=== PATIENT | female | born 1965 | race Caucasian/White ===

== ENCOUNTER 2020-01-12 10:09 | Inpatient (IN) | payer BC, OTHER ==
[~2020-01-12 10:09] MED LIST: GLYCOPYRROLATE 1 MG/5 ML VIAL ONE; NEOSTIGMINE METHYLSULFATE 10 MG/10 ML VIAL ONE; ROCURONIUM BROMIDE INJ 50 MG/5 ML VIAL IV ONE; SUCCINYLCHOLINE CHLORIDE INJ 200 MG/10 ML VIAL ONE
[2020-01-12] MEDS ORDERED: NORMAL SALINE 1000 ML 1,000 ML IV ONE (10:50)
--- NOTE | 2020-01-12 10:51 | ER Document Report ---
ED Medical Screen (RME) - General Chief Complaint: Abdominal Pain Stated Complaint: UPPER ABDOMINAL PAIN Time Seen by Provider: 01/12/20 10:49 Notes: This is a 54-year-old female presented to the emergency room today with intermittent abdominal pain worsening over the last 3 days it started on the left upper quad is now centralized to the mid abdomen associated with nausea vomiting no diarrhea she last had a bowel movement yesterday states she is not passing any flatus. - Related Data Allergies/Adverse Reactions: No Known Allergies Allergy (Unverified 01/30/14 19:36) Past Medical History Past Surgical History: Reports: Hx Hysterectomy Physical Exam - Vital signs Vitals: Temp Pulse Resp BP Pulse Ox 98.4 F 94 18 179/97 H 98 01/12/20 10:01/12/20 10:01/12/20 10:01/12/20 10:01/12/20 10:22 Course - Vital Signs Vital signs: Temp Pulse Resp BP Pulse Ox 98.4 F 94 18 179/97 H 98 01/12/20 10:01/12/20 10:01/12/20 10:01/12/20 10:01/12/20 10:22
[2020-01-12 11:50] LABS: ABSOLUTE BASOPHILS # (AUTO) 0.1 10^3/uL (0.0-0.2); ABSOLUTE LYMPHOCYTES (AUTO) 1.5 10^3/uL (0.5-4.7); ABSOLUTE MONOCYTES (AUTO) 0.4 10^3/uL (0.1-1.4); ABSOLUTE NEUT (AUTO) 12.6 10^3/uL (1.7-8.2); BASOPHILS % (AUTO) 0.7 % (0-2); HEMATOCRIT 42.5 % (36.0-47.0); HEMOGLOBIN 14.5 g/dL (12.0-15.5); LYMPHOCYTES % (AUTO) 10.1 % (13-45); MEAN CORPUSCULAR HEMOGLOBIN 28.7 pg (27.0-33.4); MEAN CORPUSCULAR HGB CONC 34.1 g/dL (32.0-36.0); MEAN CORPUSCULAR VOLUME 84 fl (80-97); MONOCYTES % (AUTO) 3.1 % (3-13); PLATELET COUNT 442 10^3/uL (150-450); RED BLOOD COUNT 5.05 10^6/uL (3.72-5.28); RED CELL DISTRIBUTION WIDTH 14.7 % (11.5-14.0); SEGMENTED NEUTROPHILS % (AUTO) 86.1 % (42-78); TOTAL CELLS COUNTED % (AUTO) 100 %; WHITE BLOOD COUNT 14.7 10^3/uL (4.0-10.5)
[2020-01-12 12:03] LABS: APPEARANCE,URINE SLIGHTLY-CLOUDY; BILIRUBIN,URINE NEGATIVE (NEGATIVE); COLOR,URINE YELLOW; GLUCOSE, URINE NEGATIVE (NEGATIVE); KETONES,URINE NEGATIVE (NEGATIVE); LEUKOCYTE ESTERASE,URINE TRACE (NEGATIVE); NITRITE,URINE NEGATIVE (NEGATIVE); PROTEIN,URINE 100 mg/dL (NEGATIVE); URINE SPECIFIC GRAVITY 1.018; UROBILINOGEN,URINE NEGATIVE mg/dL (<2.0)
[2020-01-12 12:08] LABS: ALBUMIN 4.2 g/dL (3.5-5.0); ALKALINE PHOSPHATASE 86 U/L (38-126); ANION GAP 10 (5-19); ASPARTATE AMINO TRANSFERASE 33 U/L (14-36); BILIRUBIN,DIRECT 0.1 mg/dL (0.0-0.4); BILIRUBIN,TOTAL 0.4 mg/dL (0.2-1.3); BLOOD UREA NITROGEN 10 mg/dL (7-20); CALCIUM 9.7 mg/dL (8.4-10.2); CARBON DIOXIDE 25 mmol/L (22-30); CHLORIDE 98 mmol/L (98-107); GLUCOSE 135 mg/dL (75-110); TOTAL PROTEIN 8.1 g/dL (6.3-8.2)
[2020-01-12] MEDS ORDERED: KETOROLAC TROMETHAMINE INJ/PF 30 MG/1 ML SDV IV ONE (12:33)
[2020-01-12] MEDS ORDERED: MORPHINE SULFATE 10 MG/ML INJ IV ONE ×2 (12:33)
--- NOTE | 2020-01-12 13:38 | ER Document Report ---
Entered by MAXIME CARDOZA SCRIBE 01/12/20 1230 Acting as scribe for:VERONIKA GRANT MD ED GI/ - General Chief Complaint: Abdominal Pain Stated Complaint: UPPER ABDOMINAL PAIN Time Seen by Provider: 01/12/20 10:49 Mode of Arrival: Ambulatory Information source: Patient Notes: This 54 year old female patient s/p hysterectomy presents to the emergency department today with complaints of left sided abdominal pain that radiates to her back. Patient reports that she had localized left flank pain yesterday evening and she could not get comfortable, stating she was pacing around in discomfort. She reports that the pain became severe last night at 11:00 PM and has remained severe until now. Patient does take 120 mg of methadone daily for chronic back pain and she says she has been attempting to ween herself down to 60mg but adds that she ends up taking all 120mg most days. - Related Data Allergies/Adverse Reactions: No Known Allergies Allergy (Unverified 01/30/14 19:36) Past Medical History - General Information source: Patient - Social History Smoking Status: Current Every Day Smoker Cigarette use (# per day): Yes - 2-3 ppd Lives with: Family Family History: Reviewed & Not Pertinent Musculoskeletal Medical History: Reports Other - Degenerative disc disease Past Surgical History: Reports: Hx Hysterectomy Review of Systems - Review of Systems Constitutional: No symptoms reported EENT: No symptoms reported Cardiovascular: No symptoms reported Respiratory: No symptoms reported Gastrointestinal: See HPI, Abdominal pain, Nausea. denies: Vomiting Genitourinary: See HPI, Flank pain Female Genitourinary: No symptoms reported Musculoskeletal: No symptoms reported Skin: No symptoms reported Hematologic/Lymphatic: No symptoms reported Neurological/Psychological: No symptoms reported -: Yes All other systems reviewed and negative Physical Exam - Vital signs Vitals: Temp Pulse Resp BP Pulse Ox 98.4 F 94 18 179/97 H 98 01/12/20 10:22 01/12/20 10:22 01/12/20 10:01/12/20 10:01/12/20 10:22 - Notes Notes: Physical Exam: General: Alert, smells heavily of tobacco, appears anxious and uncomfortable, writhing around in apparent pain. HEENT: Normocephalic. Atraumatic. PERRL. Extraocular movements intact. Oropharynx clear. Neck: Supple. Non-tender. Respiratory: No respiratory distress. Rhonchi consistent with smoking history. Cardiovascular: Regular rate and rhythm. Abdominal: Morbidly obese. Tenderness with deep palpation of the left upper quadrant. Mild left mid abdominal tenderness with palpation. No distension. Normal Bowel Sounds. Back: Left CVA tenderness to percussion. Extremities: Moves all four extremities. Upper extremities: Normal inspection. Normal ROM. Lower extremities: Normal inspection. No edema. Normal ROM. Neurological: Normal cognition. AAOx4. Normal speech. Psychological: Anxious. Skin: Warm. Dry. Normal color. Course - Re-evaluation Re-evalutation: 01/12/20 15:15 I did review the [address] findings with the patient which included the cholelithiasis without cholecystitis, and diverticulosis without diverticulitis. There are no other abnormalities. The patient's urine did have large blood with 141 RBCs and 3 WBCs. The patient states she has never had blood in her urine, and it is been checked many times at the methadone clinic. She was not aware that they were only doing a drug screen they were not doing a urinalysis. So she does not know if the microscopic hematuria is a new finding. She does report that she had nausea and vomiting all night and it did become bilious in nature. This may be the explanation for her WBC of 14,700 with 86 segs, however the urine has a specific gravity 1.018 with no ketones, the BUN is 10, creatinine 0.64, and serum CO2 of 25--none of these laboratory findings are consistent with the history of vomiting and dry heaving all night as she described. She is very resistant to the idea that any of the pain could be related to muscle strains possibly made worse from all the vomiting since the pains have been going on for at least 3 days. She also gives a very vague history about trying to come down off of her methadone 120 mg daily where she reports she will try to get by 160 mg a day off and on for the past 6 months but ends up having to take the full dose frequently. She goes to the methadone clinic every day, I suspect they are not watching her take the medicine. She also states that she watches what she eats because she notices when she eats greasy foods that it makes her epigastric and right upper abdomen hurt. Due to the difficulty in knowing what is really causing her constellation of symptoms, I am going to add cardiac enzymes and EKG, give her additional pain and nausea medicine, give her a loading dose of Robaxin, and get a gallbladder ultrasound. 01/12/20 16:59 The gallbladder ultrasound is read as cholelithiasis with subtle gallbladder wall thickening suggests developing cholecystitis. - Vital Signs Vital signs: Temp Pulse Resp BP Pulse Ox 98.1 F 98 18 138/83 H 96 01/12/20 17:17 01/12/20 17:17 01/12/20 10:22 01/12/20 17:17 01/12/20 17:17 - Laboratory Result Diagrams: 01/12/20 11:00 01/12/20 11:00 Laboratory results interpreted by me: 01/12/20 01/12/20 01/12/20 11:00 11:00 11:00 WBC 14.7 H RDW 14.7 H Lymph % (Auto) 10.1 L Absolute Neuts (auto) 12.6 H Seg Neutrophils % 86.1 H Sodium 133.4 L Glucose 135 H Creatine Kinase Urine Protein 100 H Urine Blood LARGE H Ur Leukocyte Esterase TRACE H 01/12/20 11:00 WBC RDW Lymph % (Auto) Absolute Neuts (auto) Seg Neutrophils % Sodium Glucose Creatine Kinase 240 H Urine Protein Urine Blood Ur Leukocyte Esterase - Diagnostic Test Radiology reviewed: Image reviewed, Reports reviewed - CT scan abdomen pelvis with IV and oral contrast does not show any acute abnormalities. There is cholelithiasis without evidence of cholecystitis and there is diverticulosis without evidence of diverticulitis. Bladder ultrasound is read as cholelithiasis with subtle gallbladder wall thickening suggests developing cholecystitis. The tech worksheet shows a gallbladder wall of 6 mm, negative Duffy sign, the largest stone at 1.9 cm. No sludge. - EKG Interpretation by Me EKG shows normal: Sinus rhythm, [place], QRS Complexes. abnormal: Intervals - Borderline prolonged QT interval, ST-T Waves - Anterior T abnormalities Rate: Normal - 82 Rhythm: NSR When compared to previous EKG there are: Previous EKG unavailable - Consults Dr. Castillo Time consulted: 16:55 Consulted provider: will come to ER Discharge - Discharge Clinical Impression: Abdominal pain Qualifiers: Abdominal location: unspecified location Qualified Code(s): R10.9 - Unspecified abdominal pain Back pain Qualifiers: Back pain location: low back pain Chronicity: chronic Back pain laterality: unspecified Sciatica presence: without sciatica Qualified Code(s): M54.5 - Low back pain; G89.29 - Other chronic pain Nausea and vomiting Qualifiers: Vomiting type: bilious vomiting Qualified Code(s): R11.14 - Bilious vomiting Cholelithiasis Qualifiers: Cholelithiasis location: gallbladder Cholecystitis presence: with cholecystitis Cholecystitis acuity: acute Biliary obstruction: without biliary obstruction Qualified Code(s): K80.00 - Calculus of gallbladder with acute cholecystitis without obstruction Condition: Stable Disposition: ADMITTED INPATIENT Admitting Provider: Surgicalist Unit Admitted: Surgical Floor I personally performed the services described in the documentation, reviewed and edited the documentation which was dictated to the scribe in my presence, and it accurately records my words and actions.
--- NOTE | 2020-01-12 14:08 | RADIOLOGY REPORT (SQ) ---
EXAM DESCRIPTION: CT ABD/PELVIS WITH IV ORAL IMAGES COMPLETED DATE/TIME: 01/12/2020 1:36 pm REASON FOR STUDY: pain COMPARISON: None. TECHNIQUE: CT scan of the abdomen and pelvis performed with intravenous and oral contrast using garcia quita scanning technique with dynamic intravenous contrast injection. Images reviewed with lung, soft t issue, and bone windows. Reconstructed coronal and sagittal MPR images reviewed. Delayed images for e valuation of the urinary system also acquired. All images stored on PACS. All CT scanners at this facility use dose modulation, iterative reconstruction, and/or weight based d osing when appropriate to reduce radiation dose to as low as reasonably achievable (ALARA). [facility]: Dose Right [facility]: CareDose [facility]: Dose Right [facility]: Teradose 4D [facility]: GenPrime CONTRAST TYPE AND DOSE: contrast/concentration: Isovue 350.00 mmol/ml; Total Contrast Delivered: 98. 0 ml; Total Saline Delivered: 68.0 ml RENAL FUNCTION: GFR > 60. RADIATION DOSE: CT Rad equipment meets quality standard of care and radiation dose reduction techniq ues were employed. CTDIvol: 17.0 - 20.1 mGy. DLP: 2077 mGy-cm. . LIMITATIONS: None. FINDINGS: LOWER CHEST: No significant findings. No nodules or infiltrates. LIVER: Normal size. No masses. No dilated ducts. SPLEEN: Normal size. No focal lesions. PANCREAS: No masses. No significant calcifications. No adjacent inflammation or peripancreatic fluid collections. Pancreatic duct not dilated. GALLBLADDER: Gallstones. No inflammatory changes to suggest cholecystitis. ADRENAL GLANDS: No significant masses or asymmetry. RIGHT KIDNEY AND URETER: No solid masses. No significant calcifications. No hydronephrosis or hyd roureter. LEFT KIDNEY AND URETER: No solid masses. No significant calcifications. No hydronephrosis or hydr oureter. AORTA AND VESSELS: No aneurysm. No dissection. Renal arteries, SMA, celiac without stenosis. RETROPERITONEUM: No retroperitoneal adenopathy, hemorrhage or masses. BOWEL AND PERITONEAL CAVITY: Diverticulosis descending and sigmoid colon. No evidence of diverticuli tis. APPENDIX: Not visualized. PELVIS: No significant masses. Normal bladder. No free fluid. ABDOMINAL WALL: No masses. No hernias. BONES: Nothing acute. OTHER: No other significant finding. IMPRESSION: 1. No acute findings. Cholelithiasis without evidence cholecystitis. 2. Diverticulosis without evidence of diverticulitis. TECHNICAL DOCUMENTATION: JOB ID: [id number] Quality ID # [id number]: Final reports with documentation of one or more dose reduction techniques (e.g., Au tomated exposure control, adjustment of the mA and/or kV according to patient size, use of iterative reconstruction technique) 2010 [employer]- All Rights Reserved Reading location - IP/workstation name: [email or web address]
[2020-01-12] MEDS ORDERED: HYDROMORPHONE HCL INJ/PF 2 MG/ML AMPULE IV ONE (15:18)
[2020-01-12] MEDS ORDERED: METHOCARBAMOL INJ/PF 1000 MG/10 ML SDV IV ONE (15:18)
[2020-01-12] MEDS ORDERED: ONDANSETRON HCL INJ/PF 4 MG/2 ML SDV IV ONE (15:18)
--- NOTE | 2020-01-12 16:37 | RADIOLOGY REPORT (SQ) ---
EXAM DESCRIPTION: U/S ABDOMEN LIMITED W/O DOP IMAGES COMPLETED DATE/TIME: 01/12/2020 4:16 pm REASON FOR STUDY: gallstones. abd pain COMPARISON: 01/12/2020 CT abdomen and pelvis TECHNIQUE: Dynamic and static grayscale images acquired of the abdomen and recorded on PACS. Additio nal selected color Doppler and spectral images recorded. LIMITATIONS: None. FINDINGS: PANCREAS: Not adequately visualized due to obscuration by intervening bowel gas. LIVER: Mild hepatic steatosis with focal sparing about the gallbladder fossa. No mass. Normal varia nt Nessa's lobe. LIVER VASCULATURE: Normal directional flow of the main portal vein and hepatic veins. GALLBLADDER: Cholelithiasis. Mild mural thickening. No demonstrated pericholecystic fluid ULTRASOUND-DETECTED WOODWARD'S SIGN: Negative. INTRAHEPATIC DUCTS AND COMMON DUCT: CBD and intrahepatic ducts normal caliber. No filling defects. INFERIOR VENA CAVA: Normal flow. AORTA: No aneurysm. RIGHT KIDNEY: Normal size. Normal echogenicity. No solid or suspicious masses. No hydronephrosis. No calcifications. PERITONEAL AND RIGHT PLEURAL SPACE: No ascites or effusions. OTHER: No other significant findings. IMPRESSION: Cholelithiasis with subtle gallbladder wall thickening suggests developing cholecystitis . TECHNICAL DOCUMENTATION: JOB ID: [id number] 2010 [employer]- All Rights Reserved Reading location - IP/workstation name: [email or web address]
--- NOTE | 2020-01-12 17:55 | EKG REPORT ---
SEVERITY:- BORDERLINE ECG - SINUS RHYTHM BORDERLINE T ABNORMALITIES, ANTERIOR LEADS BORDERLINE PROLONGED QT INTERVAL : Confirmed by: Vicky Fields MD 12-Jan-2020 17:54:27
[2020-01-12] MEDS ORDERED: DEXTROSE 40% GEL 15 GM TUBE PO PRN ×2 (18:08)
[2020-01-12] MEDS ORDERED: GLUCAGON,HUMAN RECOMB 1 MG INJ SUBCUT PRN (18:08)
[2020-01-12] MEDS ORDERED: DEXTROSE 50%-WATER 25 GM/50 ML DISP.SYRIN IV PRN ×2 (18:08)
--- NOTE | 2020-01-12 18:39 | PDOC H&P ---
History of Present Illness Patient complains of: Epigastric abdominal pain History of Present Illness: SUSU VELASQUEZ is a 54 year old female Presenting with epigastric abdominal pain of sudden onset last night which has been persistent although lessening in severity. She has had associated nausea and vomiting. No fevers. No jaundice. No diarrhea. Denies any prior history of this sort of pain. Patient is on methadone for chronic lower back pain. She denies any urinary symptoms. Past Medical History Medical History: Other - Chronic lower back pain requiring methadone. Musculoskeltal Medical History: Reports: Other - Degenerative disc disease Past Surgical History Past Surgical History: Reports: Hysterectomy - Total abdominal hysterectomy and bilateral salpingo-oophorectomy for endome Social History Information Source: Parent Lives with: Family Smoking Status: Current Every Day Smoker Frequency of Alcohol Use: None Hx Recreational Drug Use: No Hx Prescription Drug Abuse: Yes - Methadone Family History Family History: Reviewed & Not Pertinent Parental Family History Reviewed: Yes - Gallstones. Children Family History Reviewed: Yes Sibling(s) Family History Reviewed.: Yes Medication/Allergy Allergies/Adverse Reactions: No Known Allergies Allergy (Unverified 01/30/14 19:36) Review of Systems All systems: reviewed and no additional remarkable complaints except as stated Nose, Mouth, and Throat: PRESENT: other - Runny nose and congestion Gastrointestinal: PRESENT: as per HPI Musculoskeletal: PRESENT: back pain Physical Exam Vital Signs: Temp Pulse Resp BP Pulse Ox 98.1 F 98 18 138/83 H 96 01/12/20 17:17 01/12/20 17:17 01/12/20 10:22 01/12/20 17:17 01/12/20 17:17 Intake & Output 01/11/20 01/12/20 01/13/20 06:59 06:59 06:59 Intake Total 1000 Balance 1000 Weight 86.4 kg General appearance: PRESENT: no acute distress, cooperative Eye exam: PRESENT: conjunctiva pink Neck exam: PRESENT: other - Supple with no masses and no tenderness Respiratory exam: PRESENT: clear to auscultation osmar Cardiovascular exam: PRESENT: RRR GI/Abdominal exam: PRESENT: other - Soft, nondistended, mild tenderness at the epigastric region. No peritoneal signs. No flank tenderness. Extremities exam: PRESENT: other - No swelling and no tenderness Neurological exam: PRESENT: alert, awake Psychiatric exam: PRESENT: appropriate affect Results Laboratory Results: 01/12/20 11:00 01/12/20 11:00 01/12/20 01/12/20 01/12/20 11:00 11:00 11:00 WBC 14.7 H RBC 5.05 Hgb 14.5 Hct 42.5 MCV 84 MCH 28.7 MCHC 34.1 RDW 14.7 H Plt Count 442 Seg Neutrophils % 86.1 H Sodium 133.4 L Potassium 4.0 Chloride 98 Carbon Dioxide 25 Anion Gap 10 BUN 10 Creatinine 0.64 Est GFR ( Amer) > 60 Glucose 135 H Calcium 9.7 Total Bilirubin 0.4 AST 33 Alkaline Phosphatase 86 Total Protein 8.1 Albumin 4.2 Lipase 49.2 Urine Color YELLOW Urine Appearance SLIGHTLY-CLOUDY Urine pH 8.0 Ur Specific [place] 1.018 Urine Protein 100 H Urine Glucose (UA) NEGATIVE Urine Ketones NEGATIVE Urine Blood LARGE H Urine Nitrite NEGATIVE Ur Leukocyte Esterase TRACE H Urine WBC (Auto) 3 Urine RBC (Auto) 141 01/12/20 01/12/20 11:00 11:00 Creatine Kinase 240 H Troponin I 0.018 Impressions: Abdomen/Pelvis CT 01/12/20 10:49 IMPRESSION: 1. No acute findings. Cholelithiasis without evidence cholecystitis. 2. Diverticulosis without evidence of diverticulitis. Abdomen Ultrasound 01/12/20 15:23 IMPRESSION: Cholelithiasis with subtle gallbladder wall thickening suggests developing cholecystitis. Assessment & Plan - Diagnosis (1) Cholelithiasis and acute cholecystitis without obstruction Is this a current diagnosis for this admission?: Yes Plan: Ultrasound findings and symptoms consistent with acute cholecystitis. Patient has been drinking Mountain Dew all day therefore cannot proceed with surgery now. Will admit the patient. I have discussed with the patient the risk and benefits of a laparoscopic cholecystectomy including risk of mistaken diagnosis, infection, bleeding, bile duct and intestinal injury, conversion to an open procedure, postcholecystectomy diarrhea, cardiopulmonary complications, co ntinued abdominal pain despite gallbladder removal. Patient understands all of these concerns and agrees to proceed. She understands that the oncoming surgeon will make a determination about whether to proceed with surgery tomorrow or await a COVID test prior to surgery. (2) Hematuria Is this a current diagnosis for this admission?: Yes Plan: Of unknown etiology. Noted on urine analysis. Will need urology consult as an outpatient. (3) Methadone addiction Is this a current diagnosis for this admission?: Yes Plan: We will consult hospitalist to help manage her pain regimen. It is okay from surgical standpoint for her to take her normal methadone dosages. - Time Time Spent: 50 to 70 Minutes Critical Time spent with patient: 25-34 minutes Anticipated Discharge Disposition: Home, Self Care Anticipated Discharge Timeframe: within 48 hours
[2020-01-12] MEDS: AMPICILLIN SODIUM/SULBACTAM NA 3 GM in NORMAL SALINE 100 ML IV SCH (19:11)
--- NOTE | 2020-01-12 21:15 | PDOC CONSULTATION ---
Consultation Consult Date: 01/12/20 Attending physician:: ANDREI YOST Provider Consulted: ROSE TURK History of Present Illness Admission Date/PCP: 01/12/20 18:04 History of Present Illness: SUSU VELASQUEZ is a 54 year old female who is on chronic methadone who was admitted by the surgical service for acute cholecystitis. Hospitalist service was consulted for starting her methadone. She was very vague about her dosing. She said she is been trying to cut back to 60 mg a day but often winds up having to take up to 120 mg a day. Past Medical History Musculoskeltal Medical History: Reports: Other - Degenerative disc disease Psychiatric Medical History: Denies: Depression Past Surgical History Past Surgical History: Reports: Hysterectomy - Total abdominal hysterectomy and bilateral salpingo-oophorectomy for endome Social History Lives with: Family Smoking Status: Current Every Day Smoker Cigarettes Packs Per Day: 1 Frequency of Alcohol Use: None Hx Recreational Drug Use: No Hx Prescription Drug Abuse: Yes - Methadone Family History Family History: Reviewed & Not Pertinent Parental Family History Reviewed: Yes Children Family History Reviewed: Yes Sibling(s) Family History Reviewed.: Yes Medication/Allergy Allergies/Adverse Reactions: No Known Allergies Allergy (Unverified 01/30/14 19:36) Review of Systems All systems: reviewed and no additional remarkable complaints except as stated - All systems reviewed and were negative except as previously noted Physical Exam Vital Signs: Temp Pulse Resp BP Pulse Ox 98.1 F 98 18 138/83 H 96 01/12/20 17:17 01/12/20 17:17 01/12/20 10:22 01/12/20 17:17 01/12/20 17:17 Intake & Output 01/11/20 01/12/20 01/13/20 06:59 06:59 06:59 Intake Total 1000 Balance 1000 Weight 86.4 kg General appearance: PRESENT: no acute distress, cooperative, disheveled, obese Head exam: PRESENT: atraumatic, normocephalic Eye exam: PRESENT: EOMI Ear exam: PRESENT: normal external ear exam Respiratory exam: PRESENT: unlabored. ABSENT: accessory muscle use, prolonged expiratory phas, tachypnea Neurological exam: PRESENT: awake, oriented to person, oriented to place, oriented to situation Results Laboratory Results: 01/12/20 11:00 01/12/20 11:00 01/12/20 01/12/20 01/12/20 11:00 11:00 11:00 WBC 14.7 H RBC 5.05 Hgb 14.5 Hct 42.5 MCV 84 MCH 28.7 MCHC 34.1 RDW 14.7 H Plt Count 442 Seg Neutrophils % 86.1 H Sodium 133.4 L Potassium 4.0 Chloride 98 Carbon Dioxide 25 Anion Gap 10 BUN 10 Creatinine 0.64 Est GFR ( Amer) > 60 Glucose 135 H Calcium 9.7 Total Bilirubin 0.4 AST 33 Alkaline Phosphatase 86 Total Protein 8.1 Albumin 4.2 Lipase 49.2 Urine Color YELLOW Urine Appearance SLIGHTLY-CLOUDY Urine pH 8.0 Ur Specific [place] 1.018 Urine Protein 100 H Urine Glucose (UA) NEGATIVE Urine Ketones NEGATIVE Urine Blood LARGE H Urine Nitrite NEGATIVE Ur Leukocyte Esterase TRACE H Urine WBC (Auto) 3 Urine RBC (Auto) 141 01/12/20 01/12/20 11:00 11:00 Creatine Kinase 240 H Troponin I 0.018 Impressions: Abdomen/Pelvis CT 01/12/20 10:49 IMPRESSION: 1. No acute findings. Cholelithiasis without evidence cholecystitis. 2. Diverticulosis without evidence of diverticulitis. Abdomen Ultrasound 01/12/20 15:23 IMPRESSION: Cholelithiasis with subtle gallbladder wall thickening suggests developing cholecystitis. Assessment and Plan - Diagnosis (1) Methadone addiction Is this a current diagnosis for this admission?: Yes Plan: We will start her back at 60 mg a day. PRN pain medication for her cholecystitis as deemed appropriate by the surgical service. Her pain can be managed by the surgical service as they typically would for any patient in this situation. We will sign off. Please reconsult if needed. - Time Time Spent with patient: Less than 15 minutes Anticipated Discharge Disposition: Per surgery Anticipated Discharge Timeframe: Per surgery
[2020-01-12] MEDS: ONDANSETRON HCL INJ/PF 4 MG/2 ML SDV IV PRN (22:03)
[2020-01-12] MEDS: METHADONE HCL 10 MG TABLET PO SCH (22:03)
[2020-01-13] MEDS: AMPICILLIN SODIUM/SULBACTAM NA 3 GM in NORMAL SALINE 100 ML IV SCH ×4 (01:00→17:10)
[2020-01-13] MEDS: NORMAL SALINE 1000 ML 1,000 ML IV PRN ×4 (01:09→17:14)
[2020-01-13] MEDS: ONDANSETRON HCL INJ/PF 4 MG/2 ML SDV IV PRN ×2 (04:02→10:02)
[2020-01-13] MEDS: METHADONE HCL 10 MG TABLET PO SCH ×2 (06:09→14:29)
[2020-01-13] MEDS ORDERED: MORPHINE SULFATE 10 MG/ML INJ ONE ×3 (10:11→14:03)
[2020-01-13] MEDS ORDERED: FENTANYL CITRATE INJ/PF 250 MCG/5 ML AMPULE ONE (11:59)
[2020-01-13] MEDS ORDERED: ONDANSETRON HCL INJ/PF 4 MG/2 ML SDV ONE (12:00)
[2020-01-13] MEDS ORDERED: PROPOFOL INJ 200 MG/20 ML VIAL IV ONE (12:00)
[2020-01-13] MEDS ORDERED: MIDAZOLAM 2 MG/2 ML INJ ONE (12:00)
[2020-01-13] MEDS ORDERED: DEXAMETHASONE SOD PHOSPHATE INJ 4 MG/1 ML VIAL ONE (12:00)
[2020-01-13] MEDS ORDERED: BUPIVACAINE INJ/PF LIPOSOME/PF 266 MG/20 ML SDV ONE (12:13)
[2020-01-13] MEDS ORDERED: DIPHENHYDRAMINE HCL 50 MG/ML VIAL IV PRN (13:37)
[2020-01-13] MEDS ORDERED: FENTANYL CITRATE INJ/PF 100 MCG/2 ML AMPUL IV PRN ×3 (13:37)
[2020-01-13] MEDS ORDERED: OXYCODONE-ACETAMINOPHEN 5-325 MG TABLET PO PRN ×2 (13:37)
[2020-01-13] MEDS ORDERED: MORPHINE SULFATE 10 MG/ML INJ IV PRN (13:37)
[2020-01-13] MEDS ORDERED: MEPERIDINE HCL/PF INJ 25 MG/1 ML DISP.SYRIN IV PRN (13:37)
--- NOTE | 2020-01-13 14:11 | Operative Report ---
Nonrecallable Operative Report DATE OF SURGERY: 01/13/20 PREOPERATIVE DIAGNOSIS: cholecystitis POSTOPERATIVE DIAGNOSIS: cholecystitis OPERATION: laparoscopic cholecystectomy SURGEON: ANTONI DOMINGUEZ ANESTHESIA: GA TISSUE REMOVED OR ALTERED: gallbladder COMPLICATIONS: none ESTIMATED BLOOD LOSS: 25cc. PROCEDURE: After obtaining informed consent, the patient was taken to the operating room. General Anesthesia was induced; the arms were extended, and the abdomen was exposed, and prepped and draped in a sterile fashion. Instrumentation was set up for laparoscopic cholecystectomy. Surgical plan and surgical timeout were conducted. A vertical incision was made above the umbilicus, and a verres needle was insert ed uneventfully into the peritoneal cavity. Pneumoperitoneum was established. The verres needle was removed and a 10 mm trocar was inserted and a millimeter flexible laparoscope was inserted. Visualization of the peritoneal cavity confirmed safe uneventful entry. Under direct visualization 3 additional 5 mm ports were established, one in the subxiphoid position and second in the subcostal position. Visualization of the hepatobiliary anatomy revealed no anatomic variations. A grasper was placed on the fundus of the gallbladder and the gallbladder is elevated over the right surface of the liver; a second grasper was used to grasp the infundibulum of the gallbladder. The neck of the gallbladder and junction with the cystic duct was dissected out. The Cystic artery was in its usual location medial and cephalad to the cystic duct. The cystic artery was surrounded with a right angle clamp, clipped twice proximally and divided with laparoscopic scissors. We now opened the triangle of Calot by dividing the peritoneal reflection on both the medial and lateral sides of the cystic duct infundibular junction. The critical view was obtained. We now milked the cystic duct of any possible stones, clipped the cystic duct approximately 2 times once distally and divided with scissors. The gallbladder was now removed from the undersurface of the liver using hook cautery dissection. Graspers were repositioned and the gallbladder was removed uneventfully from the abdominal cavity through the super umbilical port site incision. The specimen was examined, then passed off to pathology for permanent analysis. We returned to the peritoneal cavity check for bleeding, and evidence of bile leak, and there was none. We Confirmed satisfactory placement of clips on cystic duct and cystic artery were secured . At this point we felt the operation was complete. The subcutaneous tissue was then anesthetized with quarter percent Marcaine Sponge and needle counts are correct. All ports removed under direct visualization pneumoperitoneum evacuated, and 5 mm port wounds closed with 3-0 Vicryl suture, benzoin and Steri-Strips. The patient was extubated, and taken to the recovery room in stable condition. Sponge needle counts correct x2 estimated blood loss 25 cc
[2020-01-13] MEDS: KETOROLAC TROMETHAMINE INJ/PF 30 MG/1 ML SDV IV SCH (17:10)
[2020-01-13 17:43] LABS: ABSOLUTE LYMPHOCYTES (AUTO) 1.1 10^3/uL (0.5-4.7); ABSOLUTE MONOCYTES (AUTO) 0.4 10^3/uL (0.1-1.4); ABSOLUTE NEUT (AUTO) 16.7 10^3/uL (1.7-8.2); BASOPHILS % (AUTO) 0.1 % (0-2); HEMATOCRIT 38.1 % (36.0-47.0); HEMOGLOBIN 12.6 g/dL (12.0-15.5); LYMPHOCYTES % (AUTO) 5.9 % (13-45); MEAN CORPUSCULAR HGB CONC 33.2 g/dL (32.0-36.0); MEAN CORPUSCULAR VOLUME 85 fl (80-97); MONOCYTES % (AUTO) 2.2 % (3-13); PLATELET COUNT 387 10^3/uL (150-450); RED BLOOD COUNT 4.51 10^6/uL (3.72-5.28); SEGMENTED NEUTROPHILS % (AUTO) 91.8 % (42-78); TOTAL CELLS COUNTED % (AUTO) 100 %; WHITE BLOOD COUNT 18.2 10^3/uL (4.0-10.5)
[2020-01-13 18:02] LABS: ANION GAP 8 (5-19); BLOOD UREA NITROGEN 10 mg/dL (7-20); CARBON DIOXIDE 25 mmol/L (22-30); CHLORIDE 104 mmol/L (98-107); GLUCOSE 110 mg/dL (75-110); POTASSIUM 3.7 mmol/L (3.6-5.0)
[2020-01-13] MEDS ORDERED: MORPHINE SULFATE 10 MG/ML INJ IV ONE (22:00)
[2020-01-14] MEDS: AMPICILLIN SODIUM/SULBACTAM NA 3 GM in NORMAL SALINE 100 ML IV SCH ×2 (00:03→06:04)
[2020-01-14] MEDS: KETOROLAC TROMETHAMINE INJ/PF 30 MG/1 ML SDV IV SCH ×2 (00:03→06:06)
[2020-01-14] MEDS ORDERED: METHADONE HCL 10 MG TABLET PO SCH (10:00)
[2020-01-14] MEDS ORDERED: METHADONE HCL PO SCH (10:00)
--- NOTE | 2020-01-14 10:39 | PDOC PROGRESS REPORT ---
Subjective Progress Note for:: 01/14/20 Subjective:: Feels much better after the operation. Tolerating a diet with no nausea or vomiting. Pain under good control. Reason For Visit: CHOLELITHIASIS WITH CHOLECYSTITIS Physical Exam Vital Signs: Temp Pulse Resp BP Pulse Ox 98.0 F 62 16 122/70 93 01/14/20 05:02 01/14/20 05:02 01/14/20 05:02 01/14/20 05:02 01/14/20 05:02 Intake & Output 01/13/20 01/14/20 01/15/20 06:59 06:59 06:59 Intake Total 1632 2605 Output Total 10 50 Balance 1622 2555 Weight 89.6 kg 89.4 kg General appearance: PRESENT: no acute distress, cooperative Respiratory exam: PRESENT: clear to auscultation osmar Cardiovascular exam: PRESENT: RRR GI/Abdominal exam: PRESENT: other - Soft, nondistended, minimal tenderness. Wound clean dry and intact with Steri-Strips. Results Laboratory Results: 01/13/20 17:13 01/13/20 17:13 01/13/20 01/13/20 17:13 17:13 WBC 18.2 H RBC 4.51 Hgb 12.6 Hct 38.1 MCV 85 MCH 28.0 MCHC 33.2 RDW 15.0 H Plt Count 387 Seg Neutrophils % 91.8 H Sodium 136.6 L Potassium 3.7 Chloride 104 Carbon Dioxide 25 Anion Gap 8 BUN 10 Creatinine 0.66 Est GFR ( Amer) > 60 Glucose 110 Calcium 8.0 L 01/12/20 01/12/20 11:00 11:00 Creatine Kinase 240 H Troponin I 0.018 Impressions: Abdomen/Pelvis CT 01/12/20 10:49 IMPRESSION: 1. No acute findings. Cholelithiasis without evidence cholecystitis. 2. Diverticulosis without evidence of diverticulitis. Abdomen Ultrasound 01/12/20 15:23 IMPRESSION: Cholelithiasis with subtle gallbladder wall thickening suggests developing cholecystitis. Assessment & Plan - Diagnosis (1) Cholelithiasis and acute cholecystitis without obstruction Is this a current diagnosis for this admission?: Yes Plan: Looks good after laparoscopic cholecystectomy with resolution of her abdominal symptoms. Will discharge patient home. (2) Hematuria Is this a current diagnosis for this admission?: Yes (3) Methadone addiction Is this a current diagnosis for this admission?: Yes Plan: We will have patient follow-up at the methadone clinic for her methadone refill. - Time Time Spent: 30 to 50 Minutes Critical Time spent with patient: Less than 15 minutes Anticipated Discharge Disposition: Home, Self Care Anticipated Discharge Timeframe: within 24 hours
--- NOTE | 2020-01-14 10:46 | PDOC DISCHARGE SUMMARY ---
General - Admit/Disc Date/PCP Admission Date/Primary Care Provider: 01/12/20 18:04 Discharge Date: 01/14/20 - Discharge Diagnosis Final Diagnosis: Cholecystitis with cholelithiasis. Hematuria. - Assessment Summary: Patient underwent laparoscopic cholecystectomy. She did well postoperatively with resolution of the abdominal symptoms. She was tolerating a diet well with good pain control at the time of discharge. She was given her methadone dose on the morning of discharge. She is to follow-up at the methadone clinic for her methadone prescription either today or tomorrow. She is to call for any problems such as fever, jaundice, vomiting, purulent drainage from her wound, increasing abdominal pain. Patient is to follow-up at [facility] in 2 weeks. She is encouraged to stay active at home but avoid strenuous activity. She may shower tomorrow. Patient was noted on ER evaluation with hematuria. Will make referral to urology as an outpatient for hematuria work-up. - Additional Information Resuscitation Status: Full Code Discharge Diet: As Tolerated Discharge Activity: Activity As Tolerated - Stay active but avoid strenuous activity. May shower tomorrow. Home Medications: Methadone HCl 120 mg PO DAILY 01/13/20 History of Present Illiness History of Present Illness: SUSU VELASQUEZ is a 54 year old female Presenting with epigastric abdominal pain of sudden onset last night which has been persistent although lessening in severity. She has had associated nausea and vomiting. No fevers. No jaundice. No diarrhea. Denies any prior history of this sort of pain. Patient is on methadone for chronic lower back pain. She denies any urinary symptoms. Physical Exam Vital Signs: Temp Pulse Resp BP Pulse Ox 98.0 F 62 16 122/70 93 01/14/20 05:02 01/14/20 05:02 01/14/20 05:02 01/14/20 05:02 01/14/20 05:02 Intake & Output 01/13/20 01/14/20 01/15/20 06:59 06:59 06:59 Intake Total 1632 2605 Output Total 10 50 Balance 1622 2555 Weight 89.6 kg 89.4 kg Results Laboratory Results: WBC 18.2 10^3/uL (4.0-10.5) H 01/13/20 17:13 RBC 4.51 10^6/uL (3.72-5.28) 01/13/20 17:13 Hgb 12.6 g/dL (12.0-15.5) 01/13/20 17:13 Hct 38.1 % (36.0-47.0) 01/13/20 17:13 MCV 85 fl (80-97) 01/13/20 17:13 MCH 28.0 pg (27.0-33.4) 01/13/20 17:13 MCHC 33.2 g/dL (32.0-36.0) 01/13/20 17:13 RDW 15.0 % (11.5-14.0) H 01/13/20 17:13 Plt Count 387 10^3/uL (150-450) 01/13/20 17:13 Lymph % (Auto) 5.9 % (13-45) L 01/13/20 17:13 Lucas % (Auto) 2.2 % (3-13) L 01/13/20 17:13 Eos % (Auto) 0.0 % (0-6) 01/13/20 17:13 Baso % (Auto) 0.1 % (0-2) 01/13/20 17:13 Absolute Neuts (auto) 16.7 10^3/uL (1.7-8.2) H 01/13/20 17:13 Absolute Lymphs (auto) 1.1 10^3/uL (0.5-4.7) 01/13/20 17:13 Absolute Monos (auto) 0.4 10^3/uL (0.1-1.4) 01/13/20 17:13 Absolute Eos (auto) 0.0 10^3/uL (0.0-0.6) 01/13/20 17:13 Absolute Basos (auto) 0.0 10^3/uL (0.0-0.2) 01/13/20 17:13 Seg Neutrophils % 91.8 % (42-78) H 01/13/20 17:13 Sodium 136.6 mmol/L (137-145) L 01/13/20 17:13 Potassium 3.7 mmol/L (3.6-5.0) 01/13/20 17:13 Chloride 104 mmol/L (98-107) 01/13/20 17:13 Carbon Dioxide 25 mmol/L (22-30) 01/13/20 17:13 Anion Gap 8 (5-19) 01/13/20 17:13 BUN 10 mg/dL (7-20) 01/13/20 17:13 Creatinine 0.66 mg/dL (0.52-1.25) 01/13/20 17:13 Est GFR ( Amer) > 60 (>60) 01/13/20 17:13 Est GFR (MDRD) Non-Af > 60 (>60) 01/13/20 17:13 Glucose 110 mg/dL (75-110) 01/13/20 17:13 Calcium 8.0 mg/dL (8.4-10.2) L 01/13/20 17:13 Total Bilirubin 0.4 mg/dL (0.2-1.3) 01/12/20 11:00 Direct Bilirubin 0.1 mg/dL (0.0-0.4) 01/12/20 11:00 Neonat Total Bilirubin Not Reportable 01/12/20 11:00 Neonat Direct Bilirubin Not Reportable 01/12/20 11:00 Neonat Indirect Bili Not Reportable 01/12/20 11:00 AST 33 U/L (14-36) 01/12/20 11:00 ALT 20 U/L (<35) 01/12/20 11:00 Alkaline Phosphatase 86 U/L (38-126) 01/12/20 11:00 Creatine Kinase 240 U/L (30-135) H 01/12/20 11:00 Troponin I 0.018 ng/mL 01/12/20 11:00 Total Protein 8.1 g/dL (6.3-8.2) 01/12/20 11:00 Albumin 4.2 g/dL (3.5-5.0) 01/12/20 11:00 Lipase 49.2 U/L (23-300) 01/12/20 11:00 Urine Color YELLOW 01/12/20 11:00 Urine Appearance SLIGHTLY-CLOUDY 01/12/20 11:00 Urine pH 8.0 (5.0-9.0) 01/12/20 11:00 Ur Specific [place] 1.018 01/12/20 11:00 Urine Protein 100 mg/dL (NEGATIVE) H 01/12/20 11:00 Urine Glucose (UA) NEGATIVE mg/dL (NEGATIVE) 01/12/20 11:00 Urine Ketones NEGATIVE mg/dL (NEGATIVE) 01/12/20 11:00 Urine Blood LARGE (NEGATIVE) H 01/12/20 11:00 Urine Nitrite NEGATIVE (NEGATIVE) 01/12/20 11:00 Urine Bilirubin NEGATIVE (NEGATIVE) 01/12/20 11:00 Urine Urobilinogen NEGATIVE mg/dL (<2.0) 01/12/20 11:00 Ur Leukocyte Esterase TRACE (NEGATIVE) H 01/12/20 11:00 Urine WBC (Auto) 3 /HPF 01/12/20 11:00 Urine RBC (Auto) 141 /HPF 01/12/20 11:00 Urine Bacteria (Auto) TRACE /HPF 01/12/20 11:00 Squamous Epi Cells Auto 4 /HPF 01/12/20 11:00 Urine Mucus (Auto) RARE /LPF 01/12/20 11:00 Urine Ascorbic Acid NEGATIVE (NEGATIVE) 01/12/20 11:00 SARS-CoV-2 (PCR) NEGATIVE (NEGATIVE) 01/13/20 09:50 01/12/20 11:00 Troponin I 0.018 Impressions: Abdomen/Pelvis CT 01/12/20 10:49 IMPRESSION: 1. No acute findings. Cholelithiasis without evidence cholecystitis. 2. Diverticulosis without evidence of diverticulitis. Abdomen Ultrasound 01/12/20 15:23 IMPRESSION: Cholelithiasis with subtle gallbladder wall thickening suggests developing cholecystitis.
[2020-01-14 13:06] VITALS: BP 128/76
[2020-01-14 14:22] LABS: ABSOLUTE LYMPHOCYTES (AUTO) 2.4 10^3/uL (0.5-4.7); ABSOLUTE NEUT (AUTO) 12.8 10^3/uL (1.7-8.2); BASOPHILS % (AUTO) 0.3 % (0-2); EOSINOPHILS % (AUTO) 0.1 % (0-6); HEMATOCRIT 34.8 % (36.0-47.0); HEMOGLOBIN 11.7 g/dL (12.0-15.5); MEAN CORPUSCULAR HEMOGLOBIN 28.6 pg (27.0-33.4); MEAN CORPUSCULAR HGB CONC 33.7 g/dL (32.0-36.0); MEAN CORPUSCULAR VOLUME 85 fl (80-97); MONOCYTES % (AUTO) 6.3 % (3-13); PLATELET COUNT 367 10^3/uL (150-450); RED BLOOD COUNT 4.09 10^6/uL (3.72-5.28); RED CELL DISTRIBUTION WIDTH 15.2 % (11.5-14.0); SEGMENTED NEUTROPHILS % (AUTO) 78.3 % (42-78); TOTAL CELLS COUNTED % (AUTO) 100 %; WHITE BLOOD COUNT 16.3 10^3/uL (4.0-10.5)
[2020-01-14 14:40] LABS: ANION GAP 6 (5-19); BLOOD UREA NITROGEN 16 mg/dL (7-20); CARBON DIOXIDE 27 mmol/L (22-30); CHLORIDE 106 mmol/L (98-107); GLUCOSE 94 mg/dL (75-110); POTASSIUM 3.5 mmol/L (3.6-5.0)
== END 2020-01-14 14:45 | disposition home or self-care (01) | DRG 418 ==
LOC: ER 10:09 → EH 18:04 → 4S 19:49 → 2N 01-13 03:31 → UNDODISIN 01-14 14:45
PROVIDERS: ADMIT Surgery; ATTEND Surgery
PROC: 0FT44ZZ Resection of Gallbladder, Percutaneous Endoscopic Approach (ICD-10-PCS; principal; 2020-01-13 12:30)
DX: K80.00 Calculus of gallbladder with acute cholecystitis without obstruction (principal); F11.20 Opioid dependence, uncomplicated; R31.9 Hematuria, unspecified; G89.29 Other chronic pain; M54.5 Low back pain; E66.01 Morbid (severe) obesity due to excess calories; R11.14 Bilious vomiting; F17.210 Nicotine dependence, cigarettes, uncomplicated
CPT/HCPCS: 36415; 74177; 76705; 790; 80048; 80053; 81001; 82550; 83690; 84484; 85025; 87040; 87635; 88304; 93005; 93010; 94799; 96361; 96365; 96375; 99285; C9290; C9803; J0295; J0330; J1100; J1170; J1885; J2250; J2270; J2405; J2704; J2710; J2800; J3010; J3490; J7030; J7050